=== PATIENT | male | born 1980 | race Caucasian/White ===

== ENCOUNTER 2025-02-28 10:49 | Emergency (ER) | payer OTHER, SELFPAY ==
--- OUTSIDE RECORDS SUMMARY | 2025-02-28 11:01 | XMS_ITS | Patient Health Record ---
Author Organization [employer] [facility]. Address [address] [place] [address] Care Team Providers Care Mail Deliverer Name Role Phone Daly Weaver Primary Care Provider [phone] Reason For Referral No Information Medications Medication SIG (Take, Route, Frequency, Duration) Notes Start Date End Date Status Ketorolac Tromethamine 10 MG 1 tablet with food or milk as needed Orally every 6 hrs for 5 day(s) 04/10/2019 Not-Taking Cyclobenzaprine HCl 10 MG 1 tablet as ne eded Orally Three times a day as needed for 7 days 06/06/2017 Not-Taking predniSONE 10 MG (21) as directed Orally per dose pack for 6 days 04/10/2019 Not-Taking Albuterol Sulfate HFA 108 (90 Base) MCG/ACT 2 puffs as needed Inhalation every 4 hrs Not-Taking Bromfed DM 30-2-10 MG/5ML 10 ml as neede d Orally every 4 hrs as needed for 5 days 10/18/2017 Not-Taking predniSONE 10 MG (21) as directed Orally take as directed for 6 days Not-Taking Ibuprofen 800 MG 1 tablet Orally Thre e times a day as needed for pain for 7 days Not-Taking Oseltamivir Phosphate 75 MG 1 capsule Or ally Twice a day for 5 day(s) Not-Taking Mucinex Not-Taking tiZANidine HCl 4 MG 1 tablet as needed Orally Three times a day for 10 days 08/27/2019 Active Diclofenac Sodium 75 MG 1 tablet with fo od or milk Orally Twice a day for 30 day(s) 08/27/2019 Active Social History Tobacco Use: Social History Observation Description Date Details (start date - stop date) Never Smoker NA - NA Tobacco Use/Smoking Question Answer Notes Are you a nonsmoker Alcohol Screen Question Answer Notes Points 0 Sexual History Question Answer Notes Had sex in the past 12 months (vaginal, oral, or anal)? Yes with Women only Have you ever had a Sexually transmitted disease ? No SBIRT (2018 Edition) Question Answer Notes Patient refused/declined SBIRT screening at this time? No 1. How often do you have a drink containing alco hol? Never 3. How often do you have five or more drinks on one occasion? Never SCORE 0 Interpretation Negative How many times in the past y ear have you used an illegal drug or used a prescription medication for non-medical reasons? 0 Total Count 0 Interpretation Negative Problems Problem Type SNOMED Code ICD Code Onset Dates Problem Status W/U Status Risk Notes Problem 20727069 Body aches (R52) Active confirmed Problem 673603026 BMI 35.0-35.9,adult (Z68.35) Active confirmed Problem 605307050 Influenza A (J10.1) Active confirmed Problem 033414528 Respiratory tract congestion with cough (R05) Active confirmed Problem 703208435 Fever in adult (R50.9) Active confirmed Problem 99923785940616679 Severe persistent allergic asthma (J45.50) Active confirmed Problem 175877203 Acute right-sided low back pain with right-sided sciatica (M54.41) Active confirmed Plan Of Treatment No Information Insurance Providers Payer Name Payer Address Payer Phone Subscriber Number Group Number Insured Name Patient Relationship to Insured Coverage Start Date Coverage End Date [facility] [address] [address] [place] [address] [phone] [id number] [place] IN[place] Self - patient is the insured Medical (General) History Medical History History ICD Code Asthma Surgical History Surgery Date(Month/Year)
[2025-02-28 11:16] VITALS: BP 117/73; PULSE 57; RESP 16; TEMP 36.1; O2SAT 99
--- NOTE | 2025-02-28 12:06 | ED.ANIMALBIT ---
HPI - Animal Bite General Chief Complaint: Animal Bite Stated Complaint: RT Ankle Dog Bite History of Present Illness HPI narrative: Patient is a 45-year-old male presents to urgent care following a dog bite last night. He reports the dog was a mutt weighing approximately 30-35 lb. Patient reports the dog was on a leash and after he ran by the dog it turned around and bit him in the back of the R ankle. He reports he is uncomfortable but not experiencing pain. patient denies any medical history and reports he does not take any daily medication. He is unsure when he was last vaccinated for Tetanus. patient denies any calf pain, recent fevers, decreased range of motion in his joints, drainage from the site. Related Data Allergies Allergy/AdvReac Type Severity Reaction Status Date / Time No Known Allergies Allergy Verified 02/28/25 11:16 Review of Systems Review of Systems: All systems reviewed & are unremarkable except as noted in HPI and below Exam Narrative: GENERAL: Well appearing, well-nourished, non-toxic, in no acute distress. NECK: Supple. No adenopathy, no masses. RESPIRATORY: Airway patent, respirations nonlabored. Clear to auscultation bilaterally, no rales, rhonchi, wheezing. CARDIOVASCULAR: Regular rate and rhythm without murmurs, rubs, or gallops. Peripheral pulses 2+ and equal bilaterally. ABDOMINAL: Soft, nontender, nondistended, no hepatosplenomegaly. Normoactive BS. MUSCULOSKELETAL: Moves all extremities. Strength/ROM intact without gross deformities. Negative Yuriy's sign. Positive Sinha test. SKIN: Warm, dry, normal color. No rashes. Approximately 1 1/2 cm linear laceration to R posterior ankle. Bleeding controlled, minimal oozing from site. Course Course Level of Care: Express Care Visit Vital Signs Vital signs: Vital Signs Temperature 36.1 C L 02/28/25 11:16 Pulse Rate 57 L 02/28/25 11:16 Respiratory Rate 16 02/28/25 11:16 Blood Pressure 117/73 02/28/25 11:16 Pulse Oximetry 99 02/28/25 11:16 Oxygen Delivery Room Air 02/28/25 11:16 Temperature 36.1 C L 02/28/25 11:16 Pulse Rate 57 L 02/28/25 11:16 Respiratory Rate 16 02/28/25 11:16 Blood Pressure 117/73 02/28/25 11:16 Pulse Oximetry 99 02/28/25 11:16 Oxygen Delivery Room Air 02/28/25 11:16 MDM - Animal Bite MDM Narrative Medical decision making narrative: Patient is a 45-year-old male presents to urgent care following a dog bite last night. He reports the dog was a mutt weighing approximately 30-35 lb. Patient reports the dog was on a leash and after he ran by the dog it turned around and bit him in the back of the R ankle. He reports he is uncomfortable but not experiencing pain. patient denies any medical history and reports he does not take any daily medication. He is unsure when he was last vaccinated for Tetanus. patient denies any calf pain, recent fevers, decreased range of motion in his joints, drainage from the site. Medications Ordered: Tdap IM Diagnosis: dog bite R posterior ankle Patient Education/Shared MDM: Extensive discussion between PACKING HOUSE SUPERVISOR, patient and his partner regarding the importance of receiving a Tdap vaccination and taking oral antibiotics. Pt was offered rabies prophylaxis and declined. Since the dog had an seasonal sales associate and was on a leash, it was jointly decided that the risk for rabies contraction in this situation is extremely low and rabies prophylaxis was not needed at this time. Patient strongly advised to complete his full dose of antibiotics. He should follow-up and establish care with a PCP as soon as possible. He will be discharged home with a prescription for Augmentin. Strict return precautions provided. Patient verbalized understanding and is in agreement with plan. Vital signs stable at time of discharge. All questions answered. Differential Diagnosis Differential diagnosis: Likely bite by animal, dog bite and rabies contact Discharge Plan Discharge Clinical Impression: Dog bite Patient Disposition: Home Condition: Stable Instructions: Antibiotic Form, Animal Bite (ED) Additional Instructions: Please present to the ER with any worsening symptoms. Establish care and follow-up with primary care provider as soon as possible. Complete your full dose of antibiotics. Keep your wound clean and covered. Patient Language: Setswana Prescriptions: New amoxicillin-pot clavulanate 875-125 mg tablet 1 tablet PO Q12H Qty: 20 0RF Follow-up/Referrals: PHYSICIAN,TEXTILE SCREEN PRINTER [Primary Care Provider] - Trevon Tyler MD [Physician] - (primary care) Stand Alone Forms: Work/School Release IP Time of Disposition: 12:19
[2025-02-28] MEDS: TETANUS,DIPHTHERIA,AC PERTUSSIS ADULT (0.5 ML) BOOSTRIX IM (12:15)
== END 2025-02-28 12:22 | disposition home or self-care (01) ==
PROVIDERS: Emergency Provider Registered Nurse
DX: S91.011A Laceration without foreign body, right ankle, initial encounter (principal); W54.0XXA Bitten by dog, initial encounter; Z23 Encounter for immunization
CPT/HCPCS: 90471; 90715; 99203; G0463

== ENCOUNTER 2025-09-16 11:19 | Emergency (ER) | payer OTHER, SELFPAY ==
--- OUTSIDE RECORDS SUMMARY | 2025-04-21 03:00 | XMS_ITS ---
Author Organization [facility] Address [address] [place] [address] Care Team Providers Care Order Processor Name Role Phone Jeremy Guerrero Unavailable [phone] Migration, Provider Unavailable Unavailable REASON FOR VISIT EMR-Isidro Encounters Encounter Location Date Provider Diagnosis [facility] [address] [place] [address] 04/21/2025 Provider Migration Plan Of Treatment No Information Progress Notes * Eitan INGRAMDOB: [birth year] (45 yo M)Acc No.[id number]:04/21/2025 Patient: Gee Eitan WAKEFIELD :1980 A ge:45 Y S ex:Male Address:[address] [place], [address] Subjective: * Chief Complaints: * E MR-Isidro * * Date:
--- OUTSIDE RECORDS SUMMARY | 2025-04-22 03:00 | XMS_ITS ---
Author Organization [facility] Address [address] [place] [address] Care Team Providers Care Zinc Etcher Name Role Phone Jeremy Guerrero Unavailable [phone] Migration, Provider Unavailable Unavailable Allergies No Known Allergies REASON FOR VISIT EMR-[facility] Medications Medication SIG (Take, Route, Frequency, Duration) Notes Start Date End Date Status Symbicort 160-4.5 MCG/ACT Aerosol Inhalation PRN Active Encounters Encounter Location Date Provider Diagnosis [facility] [address] [place] [address] 04/22/2025 Provider Migration Plan Of Treatment No Information Progress Notes * NATALYEitan TommieDOB: [birth year] (45 yo M)Acc No.[id number]:04/22/2025 Patient: Eitan JAIN :1980 A ge:45 Y S ex:Male Address[address] [place], [address] Subjective: * Chief Complaints: * E MR-Isidro * Medications: T akingSymbicort 160-4.5 MCG/ACT Aerosol Inhalation PRN Taking Symbicort 160-4.5 MCG/ACT Aerosol Inhalation PRN * Allergies: N .K.D.A. * * Date:
--- OUTSIDE RECORDS SUMMARY | 2025-09-16 11:25 | XMS_ITS | Patient Health Record ---
Author Organization [employer] [facility]. Address [address] [place] [address] Care Team Providers Care Publishing Director Name Role Phone Daly Weaver Primary Care Provider Reason For Referral No Information Medications Medication SIG (Take, Route, Frequency, Duration) Notes Start Date End Date Status Ketorolac Tromethamine 10 MG 1 tablet with food or milk as needed Orally every 6 hrs; Duration: 5 day(s) 04/10/2019 Not-Taking Cyclobenzaprine HCl 10 MG 1 tablet as ne eded Orally Three times a day as needed; Duration: 7 days 06/06/2017 Not-Taking predniSONE 10 MG (21) as directed Orally per dose pack; Duration: 6 days 04/10/2019 Not-Taking Albuterol Sulfate HFA 108 (90 Base) MCG/ACT 2 puffs as needed Inhalation every 4 hrs Not-Taking Bromfed DM 30-2-10 MG/5ML 10 ml as neede d Orally every 4 hrs as needed; Duration: 5 days 10/18/2017 Not-Taking predniSONE 10 MG (21) as directed Orally take as directed; Duration: 6 days Not-Taking Ibuprofen 800 MG 1 tablet Orally Thre e times a day as needed for pain; Duration: 7 days Not-Taking Oseltamivir Phosphate 75 MG 1 capsule Or ally Twice a day; Duration: 5 day(s) Not-Taking Mucinex Not-Taking tiZANidine HCl 4 MG 1 tablet as needed Orally Three times a day; Duration: 10 days 08/27/2019 Active Diclofenac Sodium 75 MG 1 tablet with fo od or milk Orally Twice a day; Duration: 30 day(s) 08/27/2019 Active Social History Tobacco [...] Problem Status W/U Status Risk Notes Problem Generalized aches and pains (68379348) Body aches (R52) Active confirmed Problem Obese class II (056042627234612 ) BMI 35.0-35.9,adult (Z68.35) Active confirmed Problem Influenza A virus (946951614) Influenza A (J10.1) Active confirmed Problem Respiratory tract congestion and cough (disorder) (337243115) Respiratory tract congestion with cough (R05) Active confirmed Problem Fever (160762621) Fever in adult (R50.9) Active confirmed Problem Severe persistent allergic asthma (547482815588179 06) Severe persistent allergic asthma (J45.50) Active confirmed Problem Sciatica (34207877) Acute right-sided low back pain with right-sided sciatica (M54.41) Active confirmed Plan Of Treatment No Information Insurance Providers Payer Name Payer Address Payer Phone Subscriber Number Group Number Insured Name Patient Relationship to Insured Coverage Start Date Coverage End Date [facility] [address] [place] [address] [phone] [id number] [place] IN[place] Self - patient is the insured Medical (General) History Medical History History ICD Code Asthma Surgical History Surgery Date(Month/Year)
--- OUTSIDE RECORDS SUMMARY | 2025-09-16 11:25 | XMS_ITS | Clinical Summary ---
Author Organization [facility] Address [address] [place] [address] Care Team Providers Care Account Group Supervisor Name Role Phone No, Pcp FAMILY SUPPORT COORDINATOR Primary Care Provider Unavailabl e Social History Tobacco Use Types Packs/Day Years Used Date Smoking Tobacco: Never Assessed Sex and Gender Information Value Date Recorded Sex Assigned at Not on file Legal Sex Male 10:17 AM EST Gender Identity Not on file Sexual Orientation Not on file Plan of Treatment Not on file Medical Devices Not on file Care Teams Account Group Supervisor Relationship Specialty Start Date End Date No, Pcp, FAMILY SUPPORT COORDINATOR N/A Do not use PCP - General Family Medicine 11/05/20
--- OUTSIDE RECORDS SUMMARY | 2025-09-16 11:25 | XMS_ITS | Clinical Summary ---
Author Organization [facility] Address [address] [place] [address] Care Team Providers Care Carpenter Repair Name Role Phone Harvinder Shields MD Primary Care Provider [phone] Allergies No known active allergies Medications No known medications Active Problems No known active problems Encounters Date Type Department Care Team Description 08/07/2025 3:20 PM SAWMILL SUPERVISOR Office Visit [facility] Family & Internal Medicine [address] [address] Harvinder Shields MD New Patient (Est care; needing new PCP hasn't had one in 25 years) 08/07/2025 Travel from Last 3 Months Family History Medical History Relation Comments No Known Problems Father Cancer Mother Relation Status Comments Father Mother Social History Tobacco Use Types Packs/Day Years Used Date Smoking Tobacco: Never Passive Smoke Exposure: Never Smokeless Tobacco: Never Tobacco Cessation:Counseling Given: No Alcohol Use Standard Drinks/Week Comments Not Currently 0 (1 standard drink = 0.6 oz pur e alcohol) Rare occasion PHQ-2 Answer Date Recorded Patient Health Questionnaire-2 Score 0 08/07/2025 Sex and Gender Information Value Date Recorded Sex Assigned at Not on file Legal Sex Male 2:41 PM CDT Gender Identity Not on file Sexual Orientation Not on file Last Filed Vital Signs Vital Sign Reading Time Taken Comments Blood Pressure 130/80 08/07/2025 3:51 PM SAWMILL SUPERVISOR Pulse 58 08/07/2025 3:20 PM SAWMILL SUPERVISOR Temperature 36.7 C (98.1 F) 08/07/2025 3:20 PM SAWMILL SUPERVISOR Respiratory Rate 16 08/07/2025 3:20 PM SAWMILL SUPERVISOR Oxygen Saturation 97% 08/07/2025 3:20 PM SAWMILL SUPERVISOR Inhaled Oxygen Concentration - - Weight 111.1 kg (245 lb) 08/07/2025 3:20 PM SAWMILL SUPERVISOR Height 188 cm (6' 2) 08/07/2025 3:20 PM SAWMILL SUPERVISOR Body Mass Index 31.46 08/07/2025 3:20 PM SAWMILL SUPERVISOR Plan of Treatment Upcoming Encounters Date Type Department Care Team (Late st Contact Info) Description 09/21/2025 11:20 AM SAWMILL SUPERVISOR Office Visit [facility] [address], [address] [place] [address] [place] [address] [address] [place] [address] [phone] Donald Ibanez PA-C [address] [place] [address] 08/08/2026 3:20 PM SAWMILL SUPERVISOR Office Visit [facility] Family & Internal Medicine - [place] [address] [place] [address] [place] [address] [facility] [address] [place] [address] [phone] Health Maintenance Due Date Last Done Comments Colorectal Cancer Screening Colonoscopy (10 Years) 1978 Annual Physical 1981 Hepatitis C 01/10/1996 DTaP, Tdap and Td Vaccines ( 1 - Tdap) 1997 Hepatitis B Vaccines (1 of 3 - 19+ 3-dose series) 1997 COVID-19 Vaccine (2024-2 6 season) 2025 Influenza Adult (#1) 2026 Postpon ed from 06/27/2025 (Patient Refused) PHQ-2 (Physician [place]) Completed 08/07/2025 Hepatitis A Vaccines Aged Out No long er eligible based on patient's age to complete this topic Meningococcal B Vaccine Aged Out No l onger eligible based on patient's age to complete this topic Meningococcal Vaccine Aged Out No torrey geovanna eligible based on patient's age to complete this topic Pneumococcal Vaccine: Pediat rics (0 to 5 Years) and At-Risk Patients (6 to 49 Years) Aged Out No longer eligi ble based on patient's age to complete this topic RSV Immunizations Under 20 Months Aged Out No longer eligible based on patient's age to complete this topic Insurance [facility] Care Teams Carpenter Repair Relationship Specialty [place] [address] [address] [facility] [address] [place] [address] PCP - General INTERNAL MEDICINE 08/07/25
[2025-09-16 12:03] VITALS: BP 125/70; PULSE 96; RESP 18; TEMP 36.3; O2SAT 97
--- NOTE | 2025-09-16 12:22 | ED_ITS ---
HPI - Back Pain/Injury General Chief Complaint: Back Pain/Injury Stated Complaint: back pain Patient presents to [facility] accompanied by spouse with complaints flare up of chronic lower back pain and muscle spasms that began over the last couple days. Patient reports he was changing a front roller is on his home treadmill and started to feel a tightness in his back. Patient noted he has been taking ibuprofen using lidocaine patches and continuing his stretches and core strength like he normally does but typically does have a flare-up about once a year. Responds well to steroids and muscle relaxers. Denies any new fall or injury, numbness, tingling, radiation of pain, or testicular pain. Related Data Allergies Allergy/AdvReac Type Severity Reaction Status Date / Time No Known Allergies Allergy Verified 09/16/25 12:10 Review of Systems Constitutional: Constitutional: Reports as per HPI, Denies chills, Denies fatigue, Denies fever(s) and Denies weakness Eyes: Eyes: Reports no additional eye complaints ENT: Reports system reviewed and no additional complaints, except as documented Cardiovascular: Cardiovascular: Reports no additional cardiovascular complaints Respiratory: Respiratory: Reports no additional respiratory complaints Gastrointestinal: Gastrointestinal: Reports as per HPI, Denies abdominal pain, Denies diarrhea, Denies nausea and Denies vomiting Genitourinary: Genitourinary: Reports no additional male genitourinary complaints, Denies penile discharge, Denies testicular pain and Denies urinary incontinence Musculoskeletal: Musculoskeletal: Reports as per HPI, Reports back pain, Denies myalgias, Denies arthralgias, Denies joint swelling and Reports muscle cramps Integumentary/Breasts: Skin/Breast: Reports as per HPI, Denies erythema, Denies rash and Denies skin ulcer Neurologic: Reports as per HPI, Denies headache(s), Denies numbness and Denies weakness Psychiatric: Psychiatric: Reports no additional psychiatric complaints Endocrine: Endocrine: Reports no additional endocrine complaints Hematologic/Lymphatic: Hematologic/Lymphatic: Reports no additional hematologic/lymphatic complaints Allergic/Immunologic: Allergic/Immunologic: Reports no additional allergic/immunologic complaints Exam Const: General: healthy appearing and no acute distress Nutritional Appearance: well nourished Orientation/consciousness: patient oriented x3 Limitations: no limitations Resp: Effort & Inspection: normal respiratory effort Auscultation: clear to auscultation bilaterally Cardio: Rate: regular rate Rhythm: regular rhythm : General: Yes bladder normal to palpation and Yes no CVA tenderness Back/Spine/Pelvis: Back: no CVA tenderness Other: No lumbar vertebral tenderness. Noted bilateral paraspinal lumbar tenderness. Pain with lumbar range of motion. Inspection of lumbar and thoracic region normal. Straight leg raise is normal. Skin: General skin exam: normal color Rashes: no rashes Wounds: no wounds Neuro: General: patient oriented x3, moves all extremities and no focal motor deficits Speech: normal speech Gait exam (Neuro): Normal gait present Extrem: General: normal to inspection and no clubbing, cyanosis or edema Psych: Mental Status: mental status grossly normal Affect: normal affect Attitude: cooperative Course Course Level of Care: Express Care Visit Vital Signs Vital signs: Vital Signs Temperature 97.3 F L 09/16/25 12:03 Pulse Rate 96 09/16/25 12:03 Respiratory Rate 18 09/16/25 12:03 Blood Pressure 125/70 09/16/25 12:03 Pulse Oximetry 97 09/16/25 12:03 Oxygen Delivery Room Air 09/16/25 12:03 Temperature 97.3 F L 09/16/25 12:03 Pulse Rate 96 09/16/25 12:03 Respiratory Rate 18 09/16/25 12:03 Blood Pressure 125/70 09/16/25 12:03 Pulse Oximetry 97 09/16/25 12:03 Oxygen Delivery Room Air 09/16/25 12:03 [facility] MDM Narrative Medical decision making narrative: Steroids and muscle relaxers The patient was evaluated by myself in the express care. History is obtained from patient who is an independent historian and physical exam was performed. Available medical records were reviewed at this time. Exam findings show no acute concerns or changes; patient is non-toxic appearing and is in no distress. Patient is appropriate for outpatient treatment and follow-up. I have evaluated and discussed social determinants of health with the patient that could potentially impact subsequent diagnosis and treatment plans. Differential diagnosis and treatment plan were discussed with the patient. Patient agrees with discussion and after shared medical decision making agrees with plan of care. All questions were answered to the patient's satisfaction. Differential Diagnosis Differential Diagnosis: lower back pain, radiculopathy, spinal injury, strain Medical Records I have reviewed the following patient records and this information was taken into consideration when formulating the assessment and plan.: previous labs, previous ER visits, previous hospitalizations and previous clinic visits Discharge Plan Discharge Clinical Impression: Strain of lumbar region Patient Disposition: Home Condition: Stable Instructions: Antibiotic Form, Acute Low Back Pain (ED), Lower Back Exercises (ED) Additional Instructions: Take pain medications as directed. Take ibuprofen as directed to decrease inflammation and to help pain. Take cyclobenzaprine (muscle relaxer) as directed. Do not drink, drive, operate machinery, or do anything dangerous while taking this medication Take Tramadol as directed for more severe pain. Do not drink, drive, operate machinery, or do anything dangerous while taking this medication. Exercise:Combine aerobic exercise, like walking or swimming, with specific exercises to keep the muscles in your back and abdomen strong and flexible. Proper Lifting:Be sure to lift heavy items with your legs, not your back. Do not bend over to pick something up. Keep your back straight and bend at your knees. Weight:Maintain a healthy weight. Being overweight puts added stress on your lower back. Avoid Smoking:Both the smoke and the nicotine cause your spine to age faster than normal. Proper Posture:Good posture is important for avoiding future problems. A therapist can teach you how to safely stand, sit, and lift. Use warm moist heat to help with pain. Follow up with Primary provider in 2-3 days, This may become a chronic condition and they will be the one to help manage your pain and order additional testing. Follow-up with your doctor for further care and evaluation or seek ER if you develop problems with bladder/bowel function, weakness or loss of feeling in one or both of your legs. Patient Language: Monegasque Prescriptions: New cyclobenzaprine 10 mg tablet 10 mg PO TID PRN (Reason: muscle spasm) Qty: 30 2RF methylprednisolone [Medrol (Dima)] 4 mg tablets,dose pack See Rx Instructions .ROUTE .COMPLEX Qty: 21 0RF Rx Instructions: for 6 days Follow-up/Referrals: Janes Curran MD [Primary Care Provider, [facility]] Time of Disposition: 12:24
== END 2025-09-16 12:28 | disposition home or self-care (01) ==
PROVIDERS: Emergency Provider Nurse Practitioner Family; PCP Family Medicine
DX: S39.012A Strain of muscle, fascia and tendon of lower back, initial encounter (principal); X58.XXXA Exposure to other specified factors, initial encounter
CPT/HCPCS: 99213; G0463